=== PATIENT | female | born 1960 ===

== ENCOUNTER 2018-09-17 11:27 | Emergency (ER) | payer SELFPAY ==
[2018-09-29 08:13] LABS: eGFR (Non-African) > 60
[2018-09-29 08:14] LABS: BASOPHILS % 0.5 % (0.0-1.5); NEUTROPHILS # 3.8 # k/uL (1.4-7.7)
--- NOTE | 2018-11-06 14:39 | Diagnostic Imaging Report ---
SANDRA ANDERSON ED [facility] [address] [facility]ly [facility] [address] [address] Report Submission Date: Sep 17, 2018 12:45:09 PM CDT Patient Study Name: TRAY ELLIS Date: Sep 17, 2018 12:23:58 PM CDT Modality Type: DX Gender: F Description: CHEST 2VIEW : 56 Institution: [facility] Physician: SANDRA ANDERSON ED Exam: Chest two views. History: Chest pain. No previous studies are available for comparison. Lung dc are well aerated without teddy consolidation or effusion. Heart and mediastinal contour are normal. No bony abnormalities are identified. Impression: No teddy consolidation or effusion. Electronically signed on Sep 17, 2018 12:45:09 PM CDT by: Kevin QUIJANO
== END 2018-09-17 13:00 ==
LOC: ED 11:27
DX: F32.9 Major depressive disorder, single episode, unspecified (principal); R07.89 Other chest pain
CPT/HCPCS: 71020; 80053; 82550; 82553; 84484; 85025; 99281; 99282; S1016